=== PATIENT | male | born 1970 ===

== ENCOUNTER 2020-10-01 06:34 | Outpatient (CLI) | payer OTHER, SELFPAY ==
--- NOTE | ~2020-10-01 | MR_ITS ---
EXAMINATION: MR shoulder LT wo con DATE: 10/01/2020 08:02 INDICATION: Superior glenoid labrum lesion of left shoulder. TECHNIQUE: Magnetic resonance imaging (MRI) of the left shoulder was performed without intravenous co ntrast. Sequences included axial PD-weighted FS FSE, coronal oblique PD-weighted FS FSE and T2-weight ed FS FSE, and sagittal oblique T2-weighted FS FSE and T1-weighted FSE. COMPARISON: Left shoulder radiographs 09/24/2020 FINDINGS: Coracoacromial arch: The acromion undersurface is curved in morphology (type II). There is mild acromioclavicular joint os teoarthritis. There is mild subacromial/subdeltoid bursitis. Rotator cuff: There is a bursal sided partial-thickness tear of supraspinatus tendon and anterior infraspinatus ten don measuring 12 mm anterior to posterior by 7 mm proximal to distal by 60% tendon thickness. Teres m inor tendon is normal. There is mild subscapularis tendinopathy. There is no asymmetric fatty atrophy of the rotator cuff muscle bellies. Biceps tendon and glenoid labrum: Biceps tendon is in bicipital groove. Intra-articular biceps tendon is normal. The glenoid labrum is normal. Fluid: There is no glenohumeral joint effusion. Bones/cartilage: There is partial-thickness cartilage loss of superior glenoid. Humeral head cartilage is normal. IMPRESSION: 1. Bursal sided partial-thickness rotator cuff tear. 2. Mild glenoid chondrosis. Normal glenoid labrum. 3. Mild acromioclavicular joint osteoarthritis. 4. Mild subacromial/subdeltoid bursitis. Reviewed, dictated and finalized at location A. [facility]
== END 2020-10-01 06:35 | disposition home or self-care (01) ==
LOC: ANHIMG 06:49
PROVIDERS: Visit Provider Orthopaedic Surgery
DX: S43.432A Superior glenoid labrum lesion of left shoulder, initial encounter (principal); M75.102 Unspecified rotator cuff tear or rupture of left shoulder, not specified as traumatic; M94.8X2 Other specified disorders of cartilage, upper arm; M19.012 Primary osteoarthritis, left shoulder; M75.52 Bursitis of left shoulder
CPT/HCPCS: 73221